=== PATIENT | male | born 1955 | race Caucasian/White ===

== ENCOUNTER 2022-10-11 11:33 | Emergency (ER) | payer MEDICARE, OTHER ==
[~2022-10-11] VITALS: Ht 177.8 cm; Wt 79.4 kg
[2022-10-11 15:25] VITALS: BP 137/79
== END 2022-10-11 15:25 | disposition home or self-care (01) ==
LOC: ED 11:33
DX: S61.213A Laceration without foreign body of left middle finger without damage to nail, initial encounter (principal); W20.8XXA Other cause of strike by thrown, projected or falling object, initial encounter
CPT/HCPCS: 12001; 73140; 99283-25